=== PATIENT | male | born 2000 | race Hispanic/Latino ===

== ENCOUNTER 2018-11-27 11:47 | Emergency (ER) | payer SELFPAY ==
[~2018-11-27] VITALS: Ht 172.7 cm; Wt 90.0 kg
[2018-11-27 13:25] VITALS: BP 121/74
== END 2018-11-27 13:25 | disposition home or self-care (01) | DRG 605 ==
LOC: ED 11:47
PROC: 0HQ0XZZ Repair Scalp Skin, External Approach (ICD-10-PCS; principal; 2018-11-27)
DX: S01.01XA Laceration without foreign body of scalp, initial encounter (principal); W22.8XXA Striking against or struck by other objects, initial encounter; Y93.H3 Activity, building and construction; Y92.009 Unspecified place in unspecified non-institutional (private) residence as the place of occurrence of the external cause

== ENCOUNTER 2018-12-08 10:51 | Emergency (ER) | payer SELFPAY ==
[~2018-12-08] VITALS: Ht 172.7 cm; Wt 80.0 kg
[2018-12-08 11:35] VITALS: BP 130/60
== END 2018-12-08 11:35 | disposition home or self-care (01) | DRG 950 ==
LOC: ED 10:51
DX: S01.80XD Unspecified open wound of other part of head, subsequent encounter (principal); X58.XXXD Exposure to other specified factors, subsequent encounter